=== PATIENT | male | born 1995 | race Caucasian/White ===

== ENCOUNTER 2017-08-28 13:36 | Emergency (ER) | payer MEDICAID, OTHER ==
[~2017-08-28] VITALS: Ht 180.3 cm; Wt 102.1 kg
[2017-08-28 14:49] VITALS: BP 136/83
[2017-08-28] MEDS ORDERED: IBUPROFEN 600 MG TABLET PO ONE ×2 (15:43→16:00)
[2017-08-28] MEDS ORDERED: DEXAMETHASONE SOD PHOSPHATE 10 MG/ML VIAL ONE (15:43)
[2017-08-28] MEDS ORDERED: DEXAMETHASONE SOD PHOSPHATE 10 MG/ML VIAL IV ONE (16:00)
== END 2017-08-28 16:01 | disposition home or self-care (01) ==
LOC: ER 13:38
DX: J02.9 Acute pharyngitis, unspecified (principal); F17.200 Nicotine dependence, unspecified, uncomplicated
CPT/HCPCS: 99283; A4606; J1100; Z7610

== ENCOUNTER 2018-09-23 04:34 | Emergency (ER) | payer BC, OTHER ==
[~2018-09-23] VITALS: Ht 180.3 cm; Wt 106.6 kg
--- NOTE | 2018-09-23 04:50 | NUR ---
PT AMBULATED TO ER 13 WITH A C/O SHOULDER INJURY. PT IS AWAITING EVAL BY .
--- NOTE | 2018-09-23 05:10 | NUR ---
PT LEFT FOR RADIOLOGY VIA .
--- NOTE | 2018-09-23 05:24 | NUR ---
PT RETURNED FROM RADIOLOGY
[2018-09-23 05:49] VITALS: BP 138/87
== END 2018-09-23 05:50 | disposition home or self-care (01) ==
LOC: ER 04:36
DX: S20.211A Contusion of right front wall of thorax, initial encounter (principal); F17.200 Nicotine dependence, unspecified, uncomplicated; V00.311A Fall from snowboard, initial encounter; Y93.23 Activity, snow (alpine) (downhill) skiing, snowboarding, sledding, tobogganing and snow tubing; Y92.39 Other specified sports and athletic area as the place of occurrence of the external cause; Y99.8 Other external cause status
CPT/HCPCS: 71100-TC

== ENCOUNTER 2018-12-11 22:44 | Emergency (ER) | payer OTHER ==
[~2018-12-11] VITALS: Ht 180.3 cm; Wt 110.7 kg
[2018-12-11 22:53] VITALS: BP 139/77
[2018-12-11] MEDS ORDERED: CYCLOBENZAPRINE 10 MG TABLET ONE (22:57)
[2018-12-11] MEDS ORDERED: CYCLOBENZAPRINE 10 MG TABLET PO ONE (23:00)
[2018-12-11 23:11] LABS: BASOPHILS # (AUTO) 0.1 /CMM (0.0-0.2); BASOPHILS % (AUTO) 0.9 % (0.0-2.0); EOSINOPHILS % (AUTO) 2.8 % (0.0-6.0); HEMATOCRIT 43 % (39-51); HEMOGLOBIN 14.9 g/dL (13.5-17.5); LYMPHOCYTES # (AUTO) 3.5 /CMM (0.8-4.8); LYMPHOCYTES % (AUTO) 41.7 % (20.0-44.0); MEAN CORPUSCULAR HGB CONC 35 g/dl (31.0-36.0); MEAN CORPUSCULAR VOLUME 89 fL (80-96); MONOCYTES # (AUTO) 0.7 /CMM (0.1-1.30); MONOCYTES % (AUTO) 8.2 % (2.0-12.0); NEUTROPHILS # (AUTO) 3.9 /CMM (1.8-8.9); NEUTROPHILS % (AUTO) 46.4 % (43.0-81.0); PLATELET COUNT (AUTO) 311 /CMM (150-450); RED BLOOD CELL COUNT(AUTO) 4.81 MIL/uL (4.5-6.0); WHITE BLOOD COUNT (AUTO) 8.4 K/uL (4.3-11.0)
[2018-12-11 23:14] LABS: APPEARANCE,URINE Clear (CLEAR); BILIRUBIN,URINE Negative (NEGATIVE); BLOOD, URINE Negative Ery/uL (NEGATIVE); COLOR,URINE Yellow (YELLOW); KETONES,URINE Trace (NEGATIVE); LEUKOCYTE ESTERASE ,URINE Negative (NEGATIVE); NITRITE, URINE Negative (NEGATIVE); PH,URINE 5.5 (5.0-8.0); PROTEIN,URINE Negative (NEGATIVE); UGLUCOSE Negative (NEGATIVE); UROBILINOGEN,URINE 0.2 EU/dL (0.2)
[2018-12-11 23:23] LABS: CALCIUM, SERUM 8.6 mg/dL (8.5-10.1); CREATININE 0.9 mg/dL (0.6-1.3); POTASSIUM 3.9 mmol/L (3.5-5.1)
[2018-12-11 23:27] LABS: ALBUMIN 4.2 g/dL (3.4-5.0); BILIRUBIN,TOTAL 0.3 mg/dL (0.2-1.0); TOTAL PROTEIN, SERUM 7.5 g/dL (6.4-8.2)
[2018-12-12 00:16] LABS: BACTERIA,URINE None seen /HPF (None Seen); MUCUS,URINE Many /LPF (None Seen); RBC,URINE 0-2 /HPF (0-2); SQUAMOUS EPITHELIAL CELL,UR Few /HPF (None Seen); WBC,URINE 0-2 /HPF (0-3)
[2018-12-12] MEDS ORDERED: KETOROLAC TROMETHAMINE INJ 60 MG/2 ML VIAL IM ONE ×2 (00:30)
== END 2018-12-12 00:37 | disposition home or self-care (01) ==
LOC: ER 22:44
DX: M54.6 Pain in thoracic spine (principal); F17.210 Nicotine dependence, cigarettes, uncomplicated
CPT/HCPCS: 36415; 71046; 80053; 81001; 85025; 99284; 99406; J1885; 81000-TC

== ENCOUNTER 2019-08-31 16:08 | Emergency (ER) | payer OTHER ==
[~2019-08-31] VITALS: Ht 180.3 cm; Wt 108.9 kg
--- NOTE | 2019-08-31 16:28 | NUR ---
Patient states "Left flank/back pain Hx of kidney stones in the past same symptoms", to ER bed 10, hooked to monitor, changed to hosp gown, provided w warm blanket, awaiting md good.
--- NOTE | 2019-08-31 16:45 | NUR ---
Dr Stanley at bedside
[2019-08-31] MEDS ORDERED: IV NS 0.9% 1,000 ML BAG IV ONE (17:00)
[2019-08-31] MEDS ORDERED: ONDANSETRON HCL/PF 4 MG/2 ML VIAL IVP ONE (17:00)
[2019-08-31] MEDS ORDERED: KETOROLAC TROMETHAMINE INJ 30 MG/ML VIAL IV ONE (17:00)
[2019-08-31] MEDS ORDERED: KETOROLAC TROMETHAMINE 15 MG/ML VIAL ONE (17:12)
[2019-08-31] MEDS ORDERED: ONDANSETRON HCL/PF 4 MG/2 ML VIAL ONE (17:12)
[2019-08-31 17:13] LABS: BASOPHILS # (AUTO) 0.1 /CMM (0.0-0.2); BASOPHILS % (AUTO) 0.8 % (0.0-2.0); EOSINOPHILS % (AUTO) 2.4 % (0.0-6.0); HEMATOCRIT 43 % (39-51); HEMOGLOBIN 14.7 g/dL (13.5-17.5); LYMPHOCYTES # (AUTO) 2.4 /CMM (0.8-4.8); LYMPHOCYTES % (AUTO) 29.3 % (20.0-44.0); MEAN CORPUSCULAR HGB CONC 34 g/dl (31.0-36.0); MEAN CORPUSCULAR VOLUME 88 fL (80-96); MONOCYTES # (AUTO) 0.7 /CMM (0.1-1.30); MONOCYTES % (AUTO) 8.5 % (2.0-12.0); NEUTROPHILS # (AUTO) 4.8 /CMM (1.8-8.9); PLATELET COUNT (AUTO) 305 /CMM (150-450); RED BLOOD CELL COUNT(AUTO) 4.94 MIL/uL (4.5-6.0); WHITE BLOOD COUNT (AUTO) 8.2 K/uL (4.3-11.0)
[2019-08-31 17:20] LABS: CALCIUM, SERUM 9.3 mg/dL (8.5-10.1); POTASSIUM 3.9 mmol/L (3.5-5.1)
[2019-08-31 17:26] LABS: ALBUMIN 4.1 g/dL (3.4-5.0); BILIRUBIN,DIRECT 0.1 mg/dL (0.0-0.2); BILIRUBIN,TOTAL 0.3 mg/dL (0.2-1.0); TOTAL PROTEIN, SERUM 7.5 g/dL (6.4-8.2)
[2019-08-31 18:33] LABS: APPEARANCE,URINE Clear (CLEAR); BILIRUBIN,URINE Negative (NEGATIVE); BLOOD, URINE Negative Ery/uL (NEGATIVE); COLOR,URINE Yellow (YELLOW); KETONES,URINE Negative (NEGATIVE); LEUKOCYTE ESTERASE ,URINE Negative (NEGATIVE); NITRITE, URINE Negative (NEGATIVE); PH,URINE 7.5 (5.0-8.0); PROTEIN,URINE Negative (NEGATIVE); UGLUCOSE Negative (NEGATIVE)
[2019-08-31 18:51] LABS: BACTERIA,URINE 1+ /HPF (None Seen); SQUAMOUS EPITHELIAL CELL,UR Few /HPF (None Seen); WBC,URINE 0-2 /HPF (0-3)
[2019-08-31 18:52] LABS: RBC,URINE 0-2 /HPF (0-2)
[2019-08-31 19:58] VITALS: BP 112/85
--- NOTE | 2019-08-31 19:58 | NUR ---
Patient discharged to home in stable condition. Written and verbal after care instructions given. Patient verbalizes understanding of instruction.
== END 2019-08-31 19:59 | disposition home or self-care (01) ==
LOC: ER 16:10
DX: K59.00 Constipation, unspecified (principal); F17.200 Nicotine dependence, unspecified, uncomplicated; Z87.442 Personal history of urinary calculi
CPT/HCPCS: 36415; 74176; 80048; 80076; 81001; 83690; 85025; 96374; 96375; 99284; J1885; J2405; J7030; 81000-TC

== ENCOUNTER 2020-07-31 14:12 | Emergency (ER) | payer OTHER ==
[~2020-07-31] VITALS: Ht 185.4 cm; Wt 113.4 kg
--- NOTE | 2020-07-31 16:17 | NUR ---
Patient discharged to home in stable condition. Written and verbal after care instructions given. Patient verbalizes understanding of instruction.
[2020-07-31 16:18] VITALS: BP 140/71
== END 2020-07-31 16:29 | disposition home or self-care (01) ==
LOC: ER 14:18
DX: S52.611A Displaced fracture of right ulna styloid process, initial encounter for closed fracture (principal); S60.511A Abrasion of right hand, initial encounter; Z87.442 Personal history of urinary calculi; V00.131A Fall from skateboard, initial encounter; Y93.51 Activity, roller skating (inline) and skateboarding; Y92.89 Other specified places as the place of occurrence of the external cause; Y99.8 Other external cause status
CPT/HCPCS: 73130-TC

== ENCOUNTER 2020-10-23 16:52 | Emergency (ER) | payer OTHER ==
[~2020-10-23] VITALS: Ht 180.3 cm; Wt 113.4 kg
--- NOTE | 2020-10-23 17:06 | NUR ---
CAME IN FOR C/O BLOOD IN URINE X TODAY, ALSO C/O SCROTAL PAIN, TO ER BED 9, HOOKED TO MONITOR, CHANGED TO HOSP GOWN, WARM BLANKET PROVIDED, PATIENT AAO x 4. DR ALCANTARA AT BEDSIDE
--- NOTE | 2020-10-23 17:20 | NUR ---
URINE SAMPLE COLLECTED AND SENT TO LAB
[2020-10-23 17:39] LABS: BASOPHILS % (AUTO) 0.3 % (0.0-2.0); EOSINOPHILS % (AUTO) 0.7 % (0.0-6.0); HEMATOCRIT 45 % (39-51); HEMOGLOBIN 15.3 g/dL (13.5-17.5); LYMPHOCYTES # (AUTO) 2.6 /CMM (0.8-4.8); LYMPHOCYTES % (AUTO) 29.3 % (20.0-44.0); MEAN CORPUSCULAR HGB CONC 34 g/dl (31.0-36.0); MEAN CORPUSCULAR VOLUME 87 fL (80-96); MONOCYTES # (AUTO) 0.6 /CMM (0.1-1.30); MONOCYTES % (AUTO) 7.2 % (2.0-12.0); NEUTROPHILS # (AUTO) 5.4 /CMM (1.8-8.9); NEUTROPHILS % (AUTO) 62.5 % (43.0-81.0); PLATELET COUNT (AUTO) 348 /CMM (150-450); RED BLOOD CELL COUNT(AUTO) 5.09 MIL/uL (4.5-6.0); WHITE BLOOD COUNT (AUTO) 8.7 K/uL (4.3-11.0)
[2020-10-23 17:40] LABS: BILIRUBIN,URINE LARGE (NEGATIVE); COLOR,URINE RED (YELLOW); LEUKOCYTE ESTERASE ,URINE Large (NEGATIVE); NITRITE, URINE Negative (NEGATIVE); PROTEIN,URINE >=300 mg/dl (NEGATIVE); UGLUCOSE Negative (NEGATIVE)
[2020-10-23 17:59] LABS: ALBUMIN 4.8 g/dL (3.4-5.0); BILIRUBIN,DIRECT 0.1 mg/dL (0.0-0.2); BILIRUBIN,TOTAL 0.3 mg/dL (0.2-1.0); CALCIUM, SERUM 9.1 mg/dL (8.5-10.1); CREATININE 1.1 mg/dL (0.6-1.3); POTASSIUM 3.7 mmol/L (3.5-5.1); TOTAL PROTEIN, SERUM 8.5 g/dL (6.4-8.2)
[2020-10-23] MEDS ORDERED: IV NS 0.9% 1,000 ML BAG IV ONE (18:00)
[2020-10-23 18:04] LABS: RBC,URINE TOO NUMEROUS TO COUN /HPF (0-2)
[2020-10-23 18:08] LABS: BACTERIA,URINE Rare /HPF (None Seen); CALCIUM OXALATE CRYSTALS,UR Rare /HPF (None Seen); SQUAMOUS EPITHELIAL CELL,UR 0-2 /HPF (None Seen)
--- NOTE | 2020-10-23 19:08 | NUR ---
REPORT GIVEN TO NOMAN MEJIA FOR JESSY
[2020-10-23] MEDS ORDERED: ACET-2605 PO (19:27)
[2020-10-23] MEDS ORDERED: IBUP-1955 PO (19:27)
[2020-10-23] MEDS ORDERED: TAMS-12 PO (19:40)
[2020-10-23] MEDS ORDERED: TRAM50TA2 PO (19:40)
[2020-10-23] MEDS ORDERED: IBUPROFEN 600 MG TABLET ONE (19:41)
--- NOTE | 2020-10-23 19:45 | NUR ---
Patient discharged to home in stable condition. Written and verbal after care instructions given. Patient verbalizes understanding of instruction.pt. ambulatory with a steady gait
[2020-10-23 19:56] VITALS: BP 143/95
[2020-10-23] MEDS ORDERED: IBUPROFEN 600 MG TABLET PO ONE (20:00)
== END 2020-10-23 19:45 | disposition home or self-care (01) ==
LOC: ER 16:55
DX: R31.0 Gross hematuria (principal); N50.812 Left testicular pain; N50.811 Right testicular pain; R80.9 Proteinuria, unspecified; I10 Essential (primary) hypertension; E11.9 Type 2 diabetes mellitus without complications; F17.200 Nicotine dependence, unspecified, uncomplicated; Z79.899 Other long term (current) drug therapy; Z87.442 Personal history of urinary calculi
CPT/HCPCS: 36415; 76770; 76870; 80048; 80076; 81001; 82550; 85025; 85730; 87491; 87591; 96360; 99285; J7030; 87086-TC